=== PATIENT | male | born 2000 | race Hispanic/Latino ===

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

== ENCOUNTER 2023-12-26 20:46 | Emergency (ER) | payer OTHER ==
[~2023-12-26] VITALS: Ht 172.7 cm; Wt 74.4 kg
[2023-12-26 22:01] LABS: RAPID GROUP A STREP negative (NEGATIVE)
[2023-12-26 22:08] LABS: SARS-CoV-2, RNA, NAAT NEGATIVE SARS CoV-2 (NEGATIVE)
[2023-12-26 22:11] LABS: INFLUENZA TYPE A Negative For Type A (NEGATIVE); INFLUENZA TYPE B Negative For Type B (NEGATIVE)
[2023-12-27] MEDS: CEFTRIAXONE 1G VIAL IM ONE (01:00)
[2023-12-27] MEDS: ACETAMINOPHEN WITH CODEINE 1 TAB TAB PO ONE (01:00)
[2023-12-27 01:50] VITALS: BP 130/84; PULSE 88; RESP 16; O2SAT 99
== END 2023-12-27 02:02 | disposition home or self-care (01) ==
LOC: EDH 20:46
DX: J02.9 Acute pharyngitis, unspecified (principal); R50.9 Fever, unspecified; Z20.822 Contact with and (suspected) exposure to COVID-19
CPT/HCPCS: 99283; 87635; 87880; 87804 ×2; 96372; J0696

== ENCOUNTER 2024-02-13 15:47 | Emergency (ER) | payer OTHER ==
[~2024-02-13] VITALS: Ht 172.7 cm; Wt 74.8 kg
[2024-02-13] MEDS ORDERED: CLIN-141 PO (16:07)
[2024-02-13] MEDS ORDERED: IBUP-2077 PO (16:07)
[2024-02-13] MEDS: KETOROLAC 60 MG VIAL (30MG/ML) IM ONE (16:17)
[2024-02-13] MEDS: HYDROCODONE/ACETAMINOPHEN 5/325 MG TAB PO ONE (16:17)
[2024-02-13 16:43] VITALS: BP 132/78; PULSE 78; RESP 18; O2SAT 98
== END 2024-02-13 16:45 | disposition home or self-care (01) ==
LOC: EDH 15:47
DX: K01.1 Impacted teeth (principal)
CPT/HCPCS: 99283; 96372; J1885